=== PATIENT | male | born 1960 | race Caucasian/White ===

== ENCOUNTER → 2018-09-27 | Outpatient (CLI) | payer BC ==
--- NOTE | 2018-09-27 17:00 | PCVCIMAG ---
APPROVED REPORT Study performed: 09/27/2018 14:49:45 Exam: Stress Echocardiogram Indication: CAD , Hyperlipidemia, abn ekg, SOB, Patient Location: Echo lab Stress Nurse: Erika Ruff RN Room #: 2 Status: routine Ht: 6 ft 2 in HR: 83 bpm BP: 142/90 mmHg Rhythm: NSR Medical History Medical History: CAD non obstructive, Hyperlipidemia Cardiac Risk Factors: HTN, Hyperlipidemia Previous Cardiac Procedures: none Pretest Chest Pain Characteristics: No chest pain Exercise History: Physically active Procedure The patient underwent an Exercise Stress Test using . Blood pressure, heart rate, and EKG were monitored. An Echocardiogram was performed by optical fabrication technician in four stages in quad fashion. At peak stress, four selected images were obtained and placed side by side with resting images for comparison. Stress Test Details Stress Test: Exercise stress testing was performed using a Woody protocol. HR Resting HR: 91 bpmMax Heart Rate (APMHR): 162 bpm Max HR Achieved: 151 bpmTarget HR (85% APMHR): 137 bpm % of APMHR: 93 Recovery HR: 98 bpm HR response to stress: Normal HR response to stress BP Resting BP: 142/90 mmHg Max BP: 200/78 mmHg Recovery BP: 158/84 mmHg ECG Resting ECG: Sinus Rhythm, NSSTT changes Stress ECG: Sinus Rhythm, NSSTT changes ST Change: Non-ischemic Arrhythmia: occ PVC Recovery ECG: Sinus Rhythm Recovery ST Change: Non-ischemic Recovery Arrhythmia: VPC- occasional Clinical Reason for Termination: Maximal effort Stress Symptoms: none Exercise duration: 9 min 01 sec Highest Stage Achieved: Stage 3: 3.4 mph at 14% grade. Exercise capacity: 10.1 METs Overall Exercise Capacity for Age: Good Scale: Active Angina Score: None No complications. Stress ECG Conclusion The patient exercised according to the WOODY protocol for 9:01 mins; achieving a work level of 10.1 METS. The resting heart rate of 83 bpm vita to a maximum heart rate of 153 bpm. This value represent 94% of the maximal, age-predicted heart rate. The resting blood pressure of 142/90 mmHg, vita to a maximum blood pressure of 200/78 mmHg. The exercise test was stopped due tofatigue . Pre-Stress Echo The resting Echocardiogram showed normal left ventricular contractility with an estimated Ejection Fraction of about 55-60%. Normal wall motion in all segments on baseline images. Post-Stress Echo The stress Echocardiogram showed normal left ventricular contractility with an estimated Ejection Fraction of about 65-70%. Normal augmentation of wall motion in all segments on post stress images. Clinical No clinical or ECG evidence for ischemia. Conclusion Clinical Response: Non-ischemic Exercise Capacity: Average Stress ECG Response: Non-ischemic Stress Echo Images: Non-ischemic No clinical, EKG or echocardiographic evidence for ischemia. No echocardiographic evidence for exercise induced ischemia. Normal stress echocardiogram with maximal exercise stress. <Conclusion> No clinical, EKG or echocardiographic evidence for ischemia. No echocardiographic evidence for exercise induced ischemia. Normal stress echocardiogram with maximal exercise stress.
== END | disposition home or self-care (01) ==
LOC: PCVCIMAG 14:39
PROVIDERS: ATTEND Internal Medicine Cardiovascular Disease
DX: I25.10 Atherosclerotic heart disease of native coronary artery without angina pectoris (principal); R93.1 Abnormal findings on diagnostic imaging of heart and coronary circulation; R94.31 Abnormal electrocardiogram [ECG] [EKG]; R06.09 Other forms of dyspnea; E78.5 Hyperlipidemia, unspecified
CPT/HCPCS: 93325; 93351

== ENCOUNTER 2019-12-29 07:54 | Day surgery (SDC) | payer BC ==
[~2019-12-29] VITALS: Ht 188 cm; Wt 113.4 kg
[~2019-12-29 07:54] MED LIST: CHLO25TA10 PO; CRESTOR5 MG PO; DOXY100C2 PO; DULO60CA6 PO; EZET10TA20 PO; HYDROmorphone 2 MG/ML VIAL IV PRN; IV RINGERS,LACTATED 1000ML 1,000 ML IV SCH; LIDOCAINE 1% PF 2 ML VIAL. ID PRN; LISI-130 PO; METF500T16 PO; MORPHINE SULFATE 2 MG/ML VIAL. IV PRN; OMEP20CA16 PO; ONDANSETRON PF 4 MG/2 ML VIAL. IV PRN; PREG100C PO; PROCHLORPERAZINE 10 MG/2 ML VIAL. IV PRN; TRAM50TA PO; VANCOMYCIN 1GM IVPB FOR OMNI 250 ML IV ONE; fentaNYL PF VIAL 100 MCG/2 ML VIAL IV PRN
[2019-12-29] MEDS ORDERED: LIDOCAINE 1% Multi-Dose 20 ML VIAL. ONE (08:00)
[2019-12-29] MEDS ORDERED: BUPIVACAINE MPF 0.5% 30 ML VIAL. ONE (08:01)
[2019-12-29] MEDS ORDERED: INSULIN LISPRO 100 UNIT/ML 3ML VIAL for OP,RR ONLY. SQ PRN (08:30)
[2019-12-29 09:37] LABS: BASO % 1 % (0-3); EOS # 0.1 x10^3/uL (0.0-0.7); EOS % 1 % (0-3); HEMATOCRIT 38.5 % (39.0-53.0); HEMOGLOBIN 12.6 g/dL (13.0-17.5); LYMPH # 3.2 x10^3/uL (1.0-4.8); LYMPH % 44 % (24-48); MEAN CORPUSCULAR HEMOGLOBIN 25 pg (25-35); MEAN CORPUSCULAR HGB CONC 33 g/dL (31-37); MEAN CORPUSCULAR VOLUME 77 fL (79-100); MONO # 0.5 x10^3/uL (0.0-1.1); MONO % 7 % (0-9); NEUT # 3.4 x10^3/uL (1.8-7.7); NEUT % 47 % (31-73); PLATELET COUNT 267 x10^3/uL (140-400); RED BLOOD COUNT 5.01 x10^6/uL (4.30-5.70); RED CELL DISTRIBUTION WIDTH 14.3 % (11.5-14.5); WHITE BLOOD COUNT 7.1 x10^3/uL (4.0-11.0)
[2019-12-29 09:42] LABS: CALCIUM 8.3 mg/dL (8.5-10.1); CREATININE 1.6 mg/dL (0.7-1.3); GFR 44.5; POTASSIUM 4.3 mmol/L (3.5-5.1)
[2019-12-29 09:48] LABS: ALBUMIN 3.5 g/dL (3.4-5.0); ALBUMIN/GLOBULIN RATIO 1.1 (1.0-1.7); TOTAL BILIRUBIN 0.3 mg/dL (0.2-1.0); TOTAL PROTEIN 6.7 g/dL (6.4-8.2)
--- NOTE | 2019-12-29 10:01 | PDOC1 ---
History and Physical Date of Admission Date of Admission DATE: 12/29/19 TIME: 10:01 Identification/Chief Complaint Chief Complaint here for toe amputation, denies new symptoms, problems, fever or chest pain , no SOA Past Medical History Cardiovascular: HTN, Hyperlipidemia GI: GERD Endocrine: Diabetes Family History Family History: Hypertension Social History Smoke: No ALCOHOL: occassional Drugs: None Current Medications Current Medications Current Medications Vancomycin HCl 250 ml @ 250 mls/hr 1X ONCE IV ; Start 12/29/19 at 06:00; Stop 12/29/19 at 06:59; Status DC Ondansetron HCl (Zofran) 4 mg PRN Q6HRS PRN IV NAUSEA/VOMITING Last administered on 12/29/19at 09:40; Start 12/29/19 at 07:00; Stop 12/30/19 at 06:59 Fentanyl Citrate (Fentanyl 2ml Vial) 25 mcg PRN Q5MIN PRN IV MILD PAIN 1-3; Start 12/29/19 at 07:00; Stop 12/30/19 at 06:59 Fentanyl Citrate (Fentanyl 2ml Vial) 50 mcg PRN Q5MIN PRN IV MODERATE TO SEVERE PAIN; Start 12/29/19 at 07:00; Stop 12/30/19 at 06:59 Morphine Sulfate (Morphine Sulfate) 1 mg PRN Q10MIN PRN IV SEVERE PAIN 7-10; Start 12/29/19 at 07:00; Stop 12/30/19 at 06:59 Ringer's Solution 1,000 ml @ 30 mls/hr Q24H IV Last administered on 12/29/19at 07:00; Start 12/29/19 at 07:00; Stop 12/29/19 at 18:59 Lidocaine HCl (Xylocaine-Mpf 1% 2ml Vial) 2 ml PRN 1X PRN ID PRIOR TO IV START; Start 12/29/19 at 07:00; Stop 12/30/19 at 06:59 Hydromorphone HCl (Dilaudid) 0.5 mg PRN Q10MIN PRN IV SEV PAIN, Second choice; Start 12/29/19 at 07:00; Stop 12/30/19 at 06:59 Prochlorperazine Edisylate (Compazine) 5 mg PACU PRN PRN IV NAUSEA, MRX1; Start 12/29/19 at 07:00; Stop 12/30/19 at 06:59 Lidocaine HCl (Lidocaine 1% 20ml Vial) 20 ml STK-MED ONCE .ROUTE ; Start 12/29/19 at 08:00; Stop 12/29/19 at 08:01; Status DC Bupivacaine HCl (Sensorcaine Mpf 0.5%) 30 ml STK-MED ONCE .ROUTE ; Start 12/29/19 at 08:01; Stop 12/29/19 at 08:01; Status DC Insulin Human Lispro (HumaLOG VIAL for OP,RR ONLY) 0-10 units PRN Q1HR PRN SQ PER PROTOCOL; Start 12/29/19 at 08:30; Stop 12/30/19 at 08:29 Active Scripts Active Reported Metformin Hcl 500 Mg Tablet 500 Mg PO BIDWMEALS Omeprazole 20 Mg Capsule.dr 20 Mg PO DAILY Chlorthalidone (Chlorthalidone) 25 Mg Tablet 25 Mg PO DAILY Tramadol Hcl 50 Mg Tablet 50 Mg PO HS PRN Zetia (Ezetimibe) 10 Mg Tablet 10 Mg PO DAILY Crestor (Rosuvastatin Calcium) 5 Mg Tablet 5 Mg PO HS PRN Lyrica (Pregabalin) 100 Mg Capsule 100 Mg PO BID 30 Days Doxycycline Hyclate 100 Mg Capsule 100 Mg PO BID Cymbalta (Duloxetine Hcl) 60 Mg Capsule.dr 60 Mg PO HS Lisinopril 40 Mg Tablet 40 Mg PO DAILY Allergies Allergies: Coded Allergies: simvastatin (Verified Adverse Reaction, Intermediate, 12/28/19) MUSCLE ACHING ROS General: No: Chills, Night Sweats, Fatigue, Malaise, Appetite, Other PSYCHOLOGICAL ROS: No: Anxiety, Behavioral Disorder, Concentration difficultie, Decreased libido, Depression, Disorientation, Hallucinations, Hostility, Irritablity, Memory difficulties, Mood Swings, Obsessive thoughts, Physical abuse, Sexual abuse, Sleep disturbances, Suicidal ideation, Other Eyes: No Blurry vision, No Decreased vision, No Double vision, No Dry eyes, No Excessive tearing, No Eye Pain, No Itchy Eyes, No Loss of vision, No Photophobia, No Scotomata, No Uses contacts, No Uses glasses, No Other HEENT: No: Heacaches, Visual Changes, Hearing change, Nasal congestion, Nasal discharge, Oral lesions, Sinus pain, Sore Throat, Epistaxis, Sneezing, Snoring, Tinnitus, Vertigo, Vocal changes, Other ALLERGY AND IMMUNOLOGY: No: Hives, Insect Bite Sensitivity, Itchy/Watery Eyes, Nasal Congestion, Post Nasal Drip, Seasonal Allergies, Other Hematological and Lymphatic: No: Bleeding Problems, Blood Clots, Blood Transfusions, Brusing, Night Sweats, Pallor, Swollen Lymph Nodes, Other ENDOCRINE: No: Breast Changes, Galactorrhea, Hair Pattern Changes, Hot Flashes, Malaise/lethargy, Mood Swings, Palpitations, Polydipsia/polyuria, Skin Changes, Temperature Intolerance, Unexpected Weight Changes, Other Respiratory: No: Cough, Hemoptysis, Orthopnea, Pleuritic Pain, Shortness of breath, SOB with excertion, Sputum Changes, Stridor, Tachypnea, Wheezing, Other Cardiovascular: No Chest Pain, No Palpitations, No Orthopnea, No Paroxysmal Noc. Dyspnea, No Edema, No Lt Headedness, No Other Gastrointestinal: No Nausea, No Vomiting, No Abdominal Pain, No Diarrhea, No Constipation, No Melena, No Hematochezia, No Other Musculoskeletal: Yes Gait Disturbance, Yes Joint Stiffness; No Joint Pain, No Joint Swelling, No Muscle Pain, No Muscular Weakness, No Pain In:, No Swelling In:, No Other Neurological: No Behavorial Changes, No Bowel/Bladder ControlChng, No Confusion, No Dizziness, No Gait Disturbance, No Headaches, No Impaired Coord/balance, No Memory Loss, No Numbness/Tingling, No Seizures, No Speech Problems, No Tremors, No Visual Changes, No Weakness, No Other Skin: Yes Skin Lesion Changes; No Dry Skin, No Eczema, No Hair Changes, No Lumps, No Mole Changes, No Mottling, No Nail Changes, No Pruritus, No Rash, No Other, No Acne Physical Exam General: Alert, Oriented X3, Cooperative, No acute distress HEENT: Atraumatic, PERRLA, EOMI Lungs: Clear to auscultation, Normal air movement Heart: RRR, no gallops, no murmurs Breasts: Not examined Abdomen: Normal bowel sounds, Soft Rectal Exam: not examined PELVIC: Examination not indicated Extremities: No cyanosis Skin: Other (left 3rd toe necrotic distal lesion) Neuro: Normal speech, Cranial nerves 3-12 NL Psych/Mental Status: Mental status NL, Mood NL Vitals Vitals Vital Signs Date Time Temp Pulse Resp B/P (MAP) Pulse Ox O2 Delivery O2 Flow Rate FiO2 12/29/19 09:42 97.2 70 16 144/88 97 Room Air 97.2 Labs Labs Laboratory Tests Test 12/29/19 08:50 White Blood Count 7.1 x10^3/uL (4.0-11.0) Red Blood Count 5.01 x10^6/uL (4.30-5.70) Hemoglobin 12.6 g/dL (13.0-17.5) Hematocrit 38.5 % (39.0-53.0) Mean Corpuscular Volume 77 fL (79-100) Mean Corpuscular Hemoglobin 25 pg (25-35) Mean Corpuscular Hemoglobin Concent 33 g/dL (31-37) Red Cell Distribution Width 14.3 % (11.5-14.5) Platelet Count 267 x10^3/uL (140-400) Neutrophils (%) (Auto) 47 % (31-73) Lymphocytes (%) (Auto) 44 % (24-48) Monocytes (%) (Auto) 7 % (0-9) Eosinophils (%) (Auto) 1 % (0-3) Basophils (%) (Auto) 1 % (0-3) Neutrophils # (Auto) 3.4 x10^3/uL (1.8-7.7) Lymphocytes # (Auto) 3.2 x10^3/uL (1.0-4.8) Monocytes # (Auto) 0.5 x10^3/uL (0.0-1.1) Eosinophils # (Auto) 0.1 x10^3/uL (0.0-0.7) Basophils # (Auto) 0.0 x10^3/uL (0.0-0.2) Sodium Level 141 mmol/L (136-145) Potassium Level 4.3 mmol/L (3.5-5.1) Chloride Level 104 mmol/L (98-107) Carbon Dioxide Level 25 mmol/L (21-32) Anion Gap 12 (6-14) Blood Urea Nitrogen 40 mg/dL (8-26) Creatinine 1.6 mg/dL (0.7-1.3) Estimated GFR (Cockcroft-Gault) 44.5 BUN/Creatinine Ratio 25 (6-20) Glucose Level 113 mg/dL (70-99) Calcium Level 8.3 mg/dL (8.5-10.1) Total Bilirubin 0.3 mg/dL (0.2-1.0) Aspartate Amino Transf (AST/SGOT) 18 U/L (15-37) Alanine Aminotransferase (ALT/SGPT) 36 U/L (16-63) Alkaline Phosphatase 61 U/L (46-116) Total Protein 6.7 g/dL (6.4-8.2) Albumin 3.5 g/dL (3.4-5.0) Albumin/Globulin Ratio 1.1 (1.0-1.7) Laboratory Tests Test 12/29/19 08:50 White Blood Count 7.1 x10^3/uL (4.0-11.0) Red Blood Count 5.01 x10^6/uL (4.30-5.70) Hemoglobin 12.6 g/dL (13.0-17.5) Hematocrit 38.5 % (39.0-53.0) Mean Corpuscular Volume 77 fL (79-100) Mean Corpuscular Hemoglobin 25 pg (25-35) Mean Corpuscular Hemoglobin Concent 33 g/dL (31-37) Red Cell Distribution Width 14.3 % (11.5-14.5) Platelet Count 267 x10^3/uL (140-400) Neutrophils (%) (Auto) 47 % (31-73) Lymphocytes (%) (Auto) 44 % (24-48) Monocytes (%) (Auto) 7 % (0-9) Eosinophils (%) (Auto) 1 % (0-3) Basophils (%) (Auto) 1 % (0-3) Neutrophils # (Auto) 3.4 x10^3/uL (1.8-7.7) Lymphocytes # (Auto) 3.2 x10^3/uL (1.0-4.8) Monocytes # (Auto) 0.5 x10^3/uL (0.0-1.1) Eosinophils # (Auto) 0.1 x10^3/uL (0.0-0.7) Basophils # (Auto) 0.0 x10^3/uL (0.0-0.2) Sodium Level 141 mmol/L (136-145) Potassium Level 4.3 mmol/L (3.5-5.1) Chloride Level 104 mmol/L (98-107) Carbon Dioxide Level 25 mmol/L (21-32) Anion Gap 12 (6-14) Blood Urea Nitrogen 40 mg/dL (8-26) Creatinine 1.6 mg/dL (0.7-1.3) Estimated GFR (Cockcroft-Gault) 44.5 BUN/Creatinine Ratio 25 (6-20) Glucose Level 113 mg/dL (70-99) Calcium Level 8.3 mg/dL (8.5-10.1) Total Bilirubin 0.3 mg/dL (0.2-1.0) Aspartate Amino Transf (AST/SGOT) 18 U/L (15-37) Alanine Aminotransferase (ALT/SGPT) 36 U/L (16-63) Alkaline Phosphatase 61 U/L (46-116) Total Protein 6.7 g/dL (6.4-8.2) Albumin 3.5 g/dL (3.4-5.0) Albumin/Globulin Ratio 1.1 (1.0-1.7) VTE Prophylaxis Ordered VTE Prophylaxis Devices: Yes VTE Pharmacological Prophylaxi: Yes Assessment/Plan Assessment/Plan impression 1. diabetic toe left 3rd toe with bone involvement, osteomyelitis 2. diabetes 3. htn 4. GERD 5. Peripheral neuropathy, diabetic 6. hammer toe left foot plan low surgical risk amputation left 3rd toe aDMIT Dvt prophylaxis home ANJELICA Elliott MD Dec 29, 2019 10:01
[2019-12-29] MEDS ORDERED: fentaNYL PF VIAL 100 MCG/2 ML VIAL ONE (10:03)
[2019-12-29] MEDS ORDERED: PROPOFOL 20 ML IV ONE (10:03)
[2019-12-29] MEDS ORDERED: IV NORMAL SALINE 1000ML BAG 1,000 ML IV SCH (10:09)
[2019-12-29] MEDS ORDERED: DOCUSATE SODIUM 100 MG CAPSULE. PO PRN (10:15)
[2019-12-29] MEDS ORDERED: SODIUM PHOSPHATES 19/7GM 133 ML ENEMA. PR PRN (10:15)
[2019-12-29] MEDS ORDERED: ACETAMINOPHEN 325 MG TABLET. PO PRN (10:15)
[2019-12-29] MEDS ORDERED: 0.9 % SODIUM CHLORIDE 10 ML DISP.SYRIN. IV PRN (10:15)
[2019-12-29] MEDS ORDERED: ONDANSETRON PF 4 MG/2 ML VIAL. IV PRN (10:15)
[2019-12-29] MEDS ORDERED: MAG HYDROX/ALUMINUM HYD/SIMETH 30 ML ORAL.SUSP PO PRN (10:15)
[2019-12-29] MEDS ORDERED: ALBUTEROL SULFATE 2.5 MG/3 ML NEBU. NEB PRN (10:15)
[2019-12-29] MEDS ORDERED: guaiFENesin ORAL 200 MG/10 ML LIQUID. PO PRN (10:15)
[2019-12-29] MEDS ORDERED: cloNIDine HCL 0.1 MG TABLET PO PRN (10:15)
[2019-12-29] MEDS ORDERED: traMADol 50 MG TABLET PO PRN (10:15)
[2019-12-29] MEDS ORDERED: NON FORMULARY ITEM (Rosuvastatin Calcium (Crestor) 5 MG) PO PRN (10:15)
[2019-12-29] MEDS ORDERED: ZOLPIDEM 5 MG TABLET. PO PRN (10:15)
[2019-12-29] MEDS ORDERED: ONDANSETRON PF 4 MG/2 ML VIAL. ONE (10:19)
[2019-12-29] MEDS ORDERED: POVIDONE-IODINE 10% TOPICAL OINTMENT 28GM TUBE. TP ONE (10:23)
[2019-12-29] MEDS ORDERED: DEXAMETHASONE SOD PHOS 4 MG/ML VIAL ONE (10:27)
[2019-12-29] MEDS ORDERED: diphenhydrAMINE 50 MG/ML VIAL ONE (10:27)
--- NOTE | 2019-12-29 10:40 | PDOC4 ---
OPERATIVE NOTE: Surgeon: Lisa Pre operative diagnosis: Osteomyelitis distal phalanx 3rd toe left Post operative diagnosis: same Procedure: partial amputation 3rd toe distal phalanx left foot Anesthesia: MAC with local Hemostasis: Left ankle tourniquet at 250mmHg EBL: less than 1mL Materials: 4-0 nylon Pathology specimen: distal phalanx 3rd toe left foot, wound culture intraop aerobic/anaerobic Patient tolerated both anesthesia and procedure well. Transferred to PACU with VSS and VSI left foot LISBETH GANDHI DPM Dec 29, 2019 10:39
[2019-12-29 11:07] VITALS: BP 133/65
--- NOTE | 2019-12-29 11:10 | OP ---
DATE OF SURGERY: 12/29/2019 PREOPERATIVE DIAGNOSIS: Osteomyelitis, distal phalanx. POSTOPERATIVE DIAGNOSIS: Osteomyelitis, distal phalanx. PROCEDURE: Third toe partial amputation to the distal interphalangeal joint, left foot. SURGEON: Enrrique Gonzalez DPM. ANESTHESIA: MAC with local. HEMOSTASIS: Left ankle tourniquet at 250 mmHg. INDICATIONS: The patient is a 59-year-old male with past medical history significant for diabetes and peripheral neuropathy, who had an ulceration to the third toe for over 1 month. He thought the ulceration had been improving; thus, he skipped his followup appointment at 2 weeks and was seen at 4 weeks and was noted to have necrotic ulceration to the distal lateral tip of the third toe with positive probe to bone. X-ray was inconclusive. MRI was ordered and showed a probable distal phalanx osteomyelitis. A wound culture was taken in the office and showed MRSA. He was then switched from Augmentin to doxycycline and arterial Doppler showed no arterial blockages. Discussed with the patient the risks, benefits, complications to include delayed or nonhealing; need for further surgery; loss of toe, foot, limb or life; infection; DVT; pulmonary embolism; chronic pain; transfer lesions. All questions were answered. No guarantees were made. DESCRIPTION OF PROCEDURE: The patient was transported to the operating room via a cart and placed on the operating room table in supine position. IV vancomycin was given per Anesthesia. IV sedation was then administered and a local third digit block was administered to the left third toe consisting of a 1:1 mixture of 1% lidocaine plain and 0.5% Marcaine plain, 6 mL total. The left foot was prepped and draped in the usual aseptic manner and a well-padded tourniquet was placed over the left ankle. The left foot was then exsanguinated with an Esmarch bandage and the left ankle tourniquet was inflated to 250 mmHg. Attention was directed to the third toe, where 2 converging semi-elliptical incisions were made dorsal proximal to plantar proximal to ellipse out the wound that was at the distal lateral aspect. The distal phalanx was disarticulated at the distal interphalangeal joint, noted that the middle phalanx head was white glistening cartilage with no proximal sinus tracking. Thus, the wound culture was taken at this time. The wound was copiously irrigated with sterile saline and the skin was reapproximated with 4-0 nylon. The wound was then dressed with Betadine-soaked Adaptic gauze, 4 x 4, Kerlix bandage and an Julius bandage. The ankle tourniquet was deflated and good perfusion was noted to all digits of the left foot. The patient was transported to the PACU in stable condition with vital signs stable and vascular status intact to the left foot. He will have x-rays taken and continue doxycycline upon discharge and we will see the patient in 1 week at the [place] location. ENRRIQUE GONZALEZ DPM DR: Taylor JOB#: [id number] / [id number]
--- NOTE | 2019-12-29 11:17 | RAD ---
Study: CR FOOT LEFT 3V Indication: Postoperative evaluation. Comparison: No prior radiographs. Findings: Third toe distal phalangeal amputation with surrounding bandaging material. No acute fracture or localized ostial lysis. Multifocal degenerative changes collectively greatest at the midfoot/TMT joints. Prominent plantar calcaneal spur. Tibial plafond spurring. Impression: 1. Status post distal phalangeal amputation of the third ray. No complicating features. 2. Multifocal degenerative changes collectively most pronounced at the midfoot/TMT joints. Electronically signed by: SAE KO MD (12/29/2019 11:15 AM) [id number]
[2019-12-29] MEDS ORDERED: PREGABALIN 50 MG CAPSULE PO SCH (12:15)
[2019-12-29] MEDS ORDERED: EZETIMIBE 10 MG TABLET. PO SCH (13:00)
[2019-12-29] MEDS ORDERED: LISINOPRIL 20 MG TABLET PO SCH (13:00)
[2019-12-29] MEDS ORDERED: metFORMIN 500 MG TABLET PO SCH (17:00)
[2019-12-29] MEDS ORDERED: DULoxetine HCL 30 MG CAPSULE.DR PO SCH (21:00)
[2019-12-30] MEDS ORDERED: PANTOPRAZOLE 40 MG TABLET.DR. PO SCH (07:30)
[2019-12-30] MEDS ORDERED: CHLORTHALIDONE 25 MG TABLET. PO SCH (09:00)
--- NOTE | 2020-01-01 17:06 | PATHOLOGY ---
[facility] Accession Number: [id number] . 01 Material submitted: . toe - DISTAL PHALANX LEFT 3RD TOE. Modifiers: left, distal, third . 01 Clinical history: . Osteomyelitis . 02 Diagnosis: Segments of skin and subcutaneous tissue and bone, distal phalanx left third toe partial amputation: - Focal ulceration and acute inflammation of skin with pseudoepitheliomatous hyperplasia and marked hyperkeratosis. - Focal acute osteomyelitis of bone. . (JPM:mm; 01/01/2020) [facility] 01/01/2020 0945 Local . 02 Electronically signed: . Richi Valle MD, Pathologist NPI- [id number] . 01 Gross description: . The specimen is received in formalin, labeled "Alvin Cuevas, distal phalanx left third toe". Received is an irregular excision of skin measuring 2.2 x 1.8 x 1.5 cm in greatest dimensions. The epidermal surface displays a possible light salazar nail. There is also a well-circumscribed, focally ulcerated and pink-red lesion identified measuring 0.7 x 0.6 cm, which grossly abuts the skin margin. Also received within the specimen container is a segment of bone displaying one jagged margin and one disarticulated margin measuring 1.3 x 1.2 x 0.8 cm. The disarticulated margin is inked black. The specimen is submitted representatively in cassette A1, following decalcification. (CAA; 12/29/2019) QAC/QA 12/29/2019 1537 Local . 02 Pathologist provided ICD-10: L85.8, L98.499, L08.9 . 02 CPT . 182247, [id number] Specimen Comment: A courtesy copy of this report has been sent to [phone] Specimen Comment: [id number] Specimen Comment: Report sent to / DR DELATORRE Performed at: [address] [facility], [place] [id number] MD Delfino Matthew MD Phone: [phone] [facility]formed at: [facility] [address] [place], [place] [id number] MD Richi Valle MD Phone: [phone]
== END 2019-12-29 12:05 | disposition home or self-care (01) ==
LOC: SURG 07:54
PROVIDERS: ATTEND Podiatrist Foot & Ankle Surgery
DX: M86.8X7 Other osteomyelitis, ankle and foot (principal); I10 Essential (primary) hypertension; E78.5 Hyperlipidemia, unspecified; E11.69 Type 2 diabetes mellitus with other specified complication; E11.40 Type 2 diabetes mellitus with diabetic neuropathy, unspecified; Z72.89 Other problems related to lifestyle; Z79.4 Long term (current) use of insulin; Z88.8 Allergy status to other drugs, medicaments and biological substances
CPT/HCPCS: 28825; 36415; 73630; 80053; 82962; 85025; 87071; 87075; 87641; A7015; J1100; J1200; J2405; J2704; J3010; J3370; J3490; A4461